=== PATIENT | male | born 1935 | race Caucasian/White ===

== ENCOUNTER 2016-05-30 06:22 | Observation (INO) | payer OTHER, MEDICARE ==
[~2016-05-30] VITALS: Ht 170.2 cm; Wt 70.8 kg
[2016-05-30] VITALS (10 sets, daily range): BP systolic 134–161; BP diastolic 70–86
[~2016-05-30 06:22] MED LIST: ASPI-482 PO; ATORVASTATIN CA80 MG PO; CLOP75TA27 PO; ERGO500012 PO; FINA5TAB4 PO; LATA2.5D3 EACHEYE; MECL12.52 PO; METO25TA9 PO; RANI300C PO; TAMS0.4C2 PO
[2016-05-30] MEDS ORDERED: HYDROMORPHONE 2 MG/ML VIAL. IV PRN (07:00)
[2016-05-30] MEDS ORDERED: IV RINGERS,LACTATED 1000ML 1,000 ML IV SCH (07:00)
[2016-05-30] MEDS ORDERED: PROCHLORPERAZINE 10 MG/2 ML VIAL. IV PRN (07:00)
[2016-05-30] MEDS ORDERED: FENTANYL PF 100 MCG/2 ML VIAL. IV PRN ×2 (07:00)
[2016-05-30] MEDS ORDERED: MORPHINE SULFATE 2 MG/ML DISP.SYRIN. IV PRN (07:00)
[2016-05-30] MEDS ORDERED: ONDANSETRON PF 4 MG/2 ML VIAL. IV PRN (07:00)
[2016-05-30] MEDS ORDERED: LIDOCAINE 1% 1 ML SYRINGE. ID PRN (07:00)
[2016-05-30 07:15] LABS: BILIRUBIN,URINE NEGATIVE (NEG); GLUCOSE,URINE NEGATIVE (NEG); NITRITE,URINE NEGATIVE (NEG); PROTEIN,URINE NEGATIVE (NEG-TRACE); UROBILINOGEN,URINE 0.2 mg/dL (0.2 mg/dL)
[2016-05-30 07:18] LABS: INR 1.1 (0.8-1.1); PROTHROMBIN TIME PATIENT 13.3 SEC (11.7-14.0)
[2016-05-30 07:19] LABS: BASO % 1 % (0-3); CALCIUM 9.2 mg/dL (8.5-10.1); CREATININE 1.2 mg/dL (0.7-1.3); EOS % 2 % (0-3); HEMATOCRIT 44.7 % (39.0-53.0); HEMOGLOBIN 14.8 g/dL (13.0-17.5); LYMPH # 1.6 x10^3/uL (1.0-4.8); LYMPH % 24 % (24-48); MEAN CORPUSCULAR HEMOGLOBIN 30 pg (25-35); MEAN CORPUSCULAR HGB CONC 33 g/dL (31-37); MEAN CORPUSCULAR VOLUME 91 fL (79-100); MONO % 8 % (0-9); NEUT % 66 % (31-73); PLATELET COUNT 134 x10^3/uL (140-400); POTASSIUM 3.5 mmol/L (3.5-5.1); RED CELL DISTRIBUTION WIDTH 13.7 % (11.5-14.5); WHITE BLOOD COUNT 6.6 x10^3/uL (4.0-11.0)
[2016-05-30 07:39] LABS: BACTERIA,URINE 0 /HPF (0-FEW); RBC,URINE 0 /HPF (0-2); SQUAMOUS EPITHELIAL CELL,UR FEW /LPF
[2016-05-30] MEDS ORDERED: DEXAMETHASONE SOD PHOS 20 MG/5 ML VIAL. ONE (07:47)
[2016-05-30] MEDS ORDERED: ONDANSETRON PF 4 MG/2 ML VIAL. ONE (07:47)
[2016-05-30] MEDS ORDERED: LIDOCAINE 2% 100 MG/5 ML DISP.SYRIN. ONE (07:47)
[2016-05-30] MEDS ORDERED: PROPOFOL 20 ML IV ONE (07:47)
[2016-05-30] MEDS ORDERED: FENTANYL PF 100 MCG/2 ML VIAL. ONE (07:48)
[2016-05-30] MEDS ORDERED: EPHEDRINE PF IN SALINE 50 MG/5 ML DISP.SYRIN. IV ONE (07:48)
[2016-05-30] MEDS ORDERED: GLYCOPYRROLATE 1 MG/5 ML VIAL. ONE (08:33)
[2016-05-30] MEDS ORDERED: PHENYLEPHRINE in 0.9% NACL PF 1 MG/10 ML DISP.SYRIN. IV ONE (08:51)
[2016-05-30] MEDS ORDERED: SEVOFLURANE 61 TO 120 MINUTES. IH ONE (09:16)
[2016-05-30] MEDS ORDERED: NALOXONE 0.4 MG/ML VIAL. IV PRN (09:45)
[2016-05-30] MEDS ORDERED: MAG HYDROX/AL HYDROX/SIMETH 30 ML ORAL.SUSP PO PRN (09:45)
[2016-05-30] MEDS ORDERED: 0.9 % SODIUM CHLORIDE 10 ML DISP.SYRIN. IV PRN (09:45)
[2016-05-30] MEDS ORDERED: DIPHENHYDRAMINE HCL 25 MG CAPSULE PO PRN (09:45)
--- NOTE | 2016-05-30 09:50 | PDOC ---
BRIEF OPERATIVE NOTE Date: May 30, 2016 Pre-Op Diagnosis BPH Post-Op Diagnosis same Procedure Performed TURP Surgeon Lacie Anesthesia Type: General Blood Loss 100cc Specimens Obtained prostate chips to lab Findings same Complications none Additional Remarks tolerated well...observation bed MATI STEELE DO May 30, 2016 09:50
--- NOTE | 2016-05-30 10:15 | OP ---
DATE OF SURGERY: 05/30/2016 PREOPERATIVE DIAGNOSIS: 05/30/2016. POSTOPERATIVE DIAGNOSIS: Benign prostate hyperplasia, urinary frequency, difficulty voiding. PROCEDURE: Cystoscopy, transurethral resection of prostate. SURGEON: Mati Steele DO. ANESTHESIA: General. ESTIMATED BLOOD LOSS: 100 mL. DRAINS: 3-way Wiley catheter to continuous bladder irrigation. INDICATIONS AND JUDGMENT: This is an 80-year-old male with symptoms of BPH and bladder outlet obstruction. He had been on medical therapy, but his symptoms increased to the point that he decided to undergo transurethral resection of prostate to relieve the bladder outlet obstruction. The procedure was explained to the patient as well as possible risks and complications. He appeared to understand and was agreeable. DESCRIPTION OF PROCEDURE: The patient was preloaded with IV antibiotics. He was then taken to the operating room and placed on the operating room table in supine position, given a general anesthetic and then placed in a dorsolithotomy position using Frandy stirrups since we do not have a cystoscopy table. The genitalia prepped and draped in sterile fashion. Rigid cystoscopy was performed. The urethra was normal course and caliber. The prostate fossa was visualized, he had a 25 gram prostate with visual obstruction. The scope was advanced into the bladder. The bladder was carefully examined. ____ ureteral orifices were identified. The bladder wall was trabeculated. The cystoscope was then removed. A well-lubricated 24-[place] resectoscope sheath was then advanced into the urethra and into the bladder. An IMASTE resectoscope was then utilized. Resection of the prostate tissue at the bladder neck was performed in a circumferential manner, removing the adenomatous tissue down to the capsular fibers of the prostate. Bleeding vessels were coagulated as they were encountered. The resectoscope was then moved to mid prostatic fossa and the prostate tissue was resected down to the capsular fibers of the prostate in a circumferential manner and bleeding vessels were coagulated with a resectoscope loop. The third and final stage of the resection was carried out at the apex. Careful attention directed to the verumontanum and to the external sphincter, so as to not harm these structures. The adenomatous tissue was then resected as previously described and the bleeding vessels were coagulated. The patient did have a median bar configuration, therefore a Gallego knife was utilized and I incised the bladder neck at the 4 o'clock and 7 o'clock positions to open the bladder neck more satisfactorily. The prostate chips were then removed from the bladder using the Reid evacuator. Hemostasis was satisfactory. The instruments were removed. A well-lubricated 22-[place] 3-way Wiley catheter was advanced into the urethra and into the bladder. A 20 mL balloon was filled and this was connected to continuous bladder irrigation using saline. The patient tolerated the procedure well and was sent to recovery room in satisfactory condition. Plans will be to admit him to observation bed. MATI STEELE DO DR: ROSHNI/gigi JOB#: [id number] / [id number]
[2016-05-30] MEDS: POTASSIUM CL 20MEQ-0.45% NACL 1,000 ML IV SCH (13:17)
[2016-05-30] MEDS ORDERED: LATANOPROST 0.005% OPHTH SOLUTION 2.5ML BOTTLE. OU SCH (21:00)
[2016-05-31] MEDS: POTASSIUM CL 20MEQ-0.45% NACL 1,000 ML IV SCH ×2 (00:51→14:19)
[2016-05-31 03:00] VITALS: BP 141/80
[2016-05-31 04:21] LABS: BASO % 0 % (0-3); EOS % 0 % (0-3); HEMATOCRIT 43.7 % (39.0-53.0); HEMOGLOBIN 14.5 g/dL (13.0-17.5); LYMPH # 1.5 x10^3/uL (1.0-4.8); LYMPH % 10 % (24-48); MEAN CORPUSCULAR HEMOGLOBIN 30 pg (25-35); MEAN CORPUSCULAR HGB CONC 33 g/dL (31-37); MEAN CORPUSCULAR VOLUME 91 fL (79-100); MONO % 7 % (0-9); NEUT % 83 % (31-73); PLATELET COUNT 144 x10^3/uL (140-400); RED BLOOD COUNT 4.83 x10^6/uL (4.30-5.70); RED CELL DISTRIBUTION WIDTH 13.5 % (11.5-14.5); WHITE BLOOD COUNT 15.5 x10^3/uL (4.0-11.0)
[2016-05-31 04:35] LABS: CALCIUM 8.7 mg/dL (8.5-10.1); CREATININE 1.2 mg/dL (0.7-1.3); POTASSIUM 3.9 mmol/L (3.5-5.1)
[2016-05-31] MEDS ORDERED: LEVOFLOXACIN 500 MG TABLET PO SCH (06:00)
[2016-05-31 07:00] VITALS: BP_SYST 145; BP_SYST 93; BP_DIAS 60; BP_DIAS 80
[2016-05-31 07:24] LABS: % EOS 1 % (0-5); PLT ESTIMATE ADEQUATE (ADEQUATE)
[2016-05-31] MEDS ORDERED: FINASTERIDE 5 MG TABLET PO SCH (09:00)
[2016-05-31 11:29] VITALS: BP 155/83
--- NOTE | 2016-05-31 13:25 | PDOC ---
Provider Note Provider Note Urology- POD#1 carrillo out, voiding with good stream, slight heme color Plan: Home Rx Cipro f/u 2 weeks stay off plavix and ASA MATI STEELE DO May 31, 2016 13:25
--- NOTE | 2016-05-31 13:28 | DISCH ---
DISCHARGE INSTRUCTIONS Condition on Discharge Condition on Discharge: Stable Activity After Discharge Activity Instructions for Disc: Avoid exertion Driving Instructions after Dis: No driving for 2 weeks Diet after Discharge Diet after Discharge: Regular Additional Diet Restrictions: drink 6-8 12oz glasses of water per day Contacting the DRJulius after DC Call your doctor for: Concerns you may have Follow-Up Follow up with: Dr Steele in 2 weeks Treatment/Equipment after DC Comment: Hold Plavix and Aspirin for now MATI STEELE DO May 31, 2016 13:28
[2016-05-31] MEDS ORDERED: CIPR500T94 PO (14:08)
--- NOTE | 2016-05-31 15:07 | PATHOLOGY ---
PATHOLOGY REPORT * * * * * * * * FINAL DIAGNOSIS: Prostate tissue, transurethral resection: - Nodular prostatic glandular and stromal hyperplasia. - Chronic inflammation, focal. COMMENT: There is no evidence of malignancy. (JPM:csd; d/t: 05/31/2016) REPORT ELECTRONICALLY SIGNED BY: Orlin Perkins M.D. DATE/TIME: 05/31/2016 15:07 * * * * * * * * GROSS PATHOLOGY: The specimen is received in formalin, labeled "Vasquez Loo and prostate fragments." Received is a 7 g, 8.3 x 4.5 x 1.3 cm aggregate of pink-tapia, rubbery, and focally cauterized soft tissue fragments. The specimen is entirely submitted in cassettes [id number]. (TTL; 05/30/2016) INITIAL CPT CODE(S): A; 95711 Professional services performed [place] [facility] [place] [address] Technical services performed by [facility] at [address] [place] [address] [address], [place] [address]. SPECIMEN(S) RECEIVED: A.Prostate fragments CLINICAL HISTORY: BPH, urine retention PATIENT: VASQUEZ LOO /AGE: 711/09/1935 (Age: 80) PATIENT #: [id number] ALT CASE #: SPECIMEN COLLECTION DATE: 05/30/2016 SPECIMEN RECEIVED DATE: 05/30/2016 [facility] - [address] [place] [address] - PHONE: [phone] * * * END OF REPORT * * *
--- NOTE | 2016-06-01 01:53 | DS ---
DATE OF DISCHARGE: 05/31/2016 FINAL DIAGNOSES: 1. Benign prostate hyperplasia. 2. Difficulty voiding. OPERATIONS AND PROCEDURES: Cystoscopy, transurethral resection of prostate performed on 05/30/2016. This is a summary of the patient's hospital course: Well documented history and physical can be found in the body of the chart. Briefly, this 80-year-old male has a history of BPH, urinary frequency and difficulty voiding. He had been on maximal medical therapy, but continued to be symptomatic. Therefore, he chose to undergo transurethral resection of prostate to relieve the bladder outlet obstruction. The patient was brought to the hospital on 05/30/2016. He was taken to surgery that day and under general anesthesia, underwent transurethral resection of the prostate. The procedure went very well. At the conclusion, a 22 American 3-way Wiley catheter was left in place connected to continuous bladder irrigation. The patient had an uneventful night. The following morning, he was doing very well. Therefore, his catheter was removed. The patient was voiding satisfactorily later in the day and therefore, it was felt that he could go home. He was given discharge instructions with respect to diet and activity. He was placed on a prescription for Cipro antibiotics 500 mg p.o. b.i.d. for 5 days. He was told to stop his Plavix and aspirin until he sees me in the office in two weeks for a followup visit. At the time of discharge, he was doing very well, but the urine was slightly marina color. MATI STEELE DO DR: ROSHNI/gigi JOB#: [id number] / [id number]
== END 2016-05-31 14:45 | disposition home or self-care (01) ==
LOC: SURG 06:22 → 5 NORTH 09:45
PROVIDERS: ADMIT Urology; ATTEND Urology
DX: N40.0 Benign prostatic hyperplasia without lower urinary tract symptoms (principal); N32.0 Bladder-neck obstruction; R35.0 Frequency of micturition
CPT/HCPCS: 36415; 52001; 80048; 81001; 85007; 85027; 85610; 85730; 88305; G0378; G0379; J1100; J1956; J2370; J2405; J2704; J3010; J3490